=== PATIENT | male | born 1985 | race American Indian/Alaskan Native ===

== ENCOUNTER 2020-07-30 04:51 | Emergency (ER) | payer SELFPAY ==
[2020-07-30 05:08] VITALS: BP 145/89
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
== END 2020-07-30 05:34 | disposition home or self-care (01) ==
LOC: ED 04:51
DX: S16.1XXA Strain of muscle, fascia and tendon at neck level, initial encounter (principal); M62.838 Other muscle spasm; M54.2 Cervicalgia; Z79.899 Other long term (current) drug therapy; Y08.89XA Assault by other specified means, initial encounter; Y93.89 Activity, other specified; Y92.89 Other specified places as the place of occurrence of the external cause; Y99.8 Other external cause status
CPT/HCPCS: 99282

== ENCOUNTER 2020-11-20 18:58 | Emergency (ER) | payer OTHER ==
[2020-11-20 20:50] VITALS: BP 149/99
[2020-11-20] MEDS ORDERED: ONDANSETRON 4 MG ODT TAB PO ONE (22:24)
[2020-11-20] MEDS ORDERED: HYDROcodone/ACETAMINOPHEN 5-325 MG TAB PO ONE (22:24)
[2020-11-20] MEDS ORDERED: IBUPROFEN 600 MG TAB PO ONE (22:24)
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
== END 2020-11-20 23:35 | disposition home or self-care (01) ==
LOC: ED 18:58
DX: M62.830 Muscle spasm of back (principal); M54.5 Low back pain; G89.29 Other chronic pain; M54.2 Cervicalgia; F17.200 Nicotine dependence, unspecified, uncomplicated; Z79.899 Other long term (current) drug therapy
CPT/HCPCS: 99282; Q0162

== ENCOUNTER 2021-01-04 11:45 | Emergency (ER) | payer OTHER ==
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
[2021-01-04 14:48] LABS: Bilirubin,Urine NEG (Negative); Blood,Urine SM (Negative); Color,Urine Yellow (Yellow); Mucus,Urine FEW /HPF; Protein,Urine <15 mg/dL mg/dL (Negative)
[2021-01-04 15:01] LABS: Hematocrit 47.1 % (35.5-45.6); Mean Corpuscular HGB Conc 34 % (32-34); Mean Corpuscular Volume 91 fl (84-94); Platelet Count 295 K/mm3 (140-440); Red Blood Count 5.16 M/mm3 (3.65-5.03); Red Cell Distribution Width 13.6 % (13.2-15.2)
[2021-01-04 15:20] LABS: Alanine Aminotransferase 29 units/L (7-56); Albumin 4.3 g/dL (3.9-5); BUN/Creatinine Ratio 10; Blood Urea Nitrogen 13 mg/dL (9-20); Calcium 9.2 mg/dL (8.4-10.2); Hemolysis Index 30
--- NOTE | 2021-01-04 16:25 | Cat Scan Report ---
CT abdomen pelvis w con INDICATION / CLINICAL INFORMATION: RLQ and right lower back pain OMNI 300 100ML . TECHNIQUE: Axial CT images were obtained through the abdomen and pelvis after IV contrast. All CT sc ans at this location are performed using CT dose reduction for ALARA by means of automated exposure c ontrol. COMPARISON: None available. FINDINGS: LOWER CHEST: Sub-4 mm subpleural nodule in the left lower lobe is of doubtful clinical significance a nd no further follow-up is required. No acute airspace disease in the lung bases. LIVER: No significant abnormality GALLBLADDER/BILIARY TREE: No significant abnormality PANCREAS: No significant abnormality SPLEEN: No significant abnormality ADRENALS: No significant abnormality KIDNEYS / URETER: No significant abnormality. No urolithiasis or hydronephrosis. URINARY BLADDER: No significant abnormality REPRODUCTIVE ORGANS: No significant abnormality STOMACH / BOWEL: No significant abnormality. The appendix is normal in caliber. LYMPH NODES: No significant adenopathy. VASCULATURE: No significant abnormality. OTHER: No free air, free fluid, or focal fluid collection is identified. SKELETAL SYSTEM: No acute osseous findings. IMPRESSION: No acute abnormality of the abdomen or pelvis. Normal appendix. Signer Name: Russ Wright MD Signed: 01/04/2021 4:20 PM Workstation Name: [id number]
[2021-01-04 16:33] LABS: Total Cells Counted 100
[2021-01-04 16:40] LABS: RBC Morphology Normal
[2021-01-04 17:47] VITALS: BP 162/80
== END 2021-01-04 17:50 | disposition home or self-care (01) ==
LOC: ED 11:45
DX: M54.5 Low back pain (principal); R10.31 Right lower quadrant pain; F17.200 Nicotine dependence, unspecified, uncomplicated; Z79.899 Other long term (current) drug therapy
CPT/HCPCS: 36415; 74177; 80053; 81001; 83690; 85007; 85025; 99284; Q9967

== ENCOUNTER 2021-09-01 14:56 | Emergency (ER) | payer SELFPAY ==
--- NOTE | 2021-09-01 18:41 | Ultrasound Report ---
EXAMINATION: Testicular ultrasound, 09/01/2021 CLINICAL INFORMATION / INDICATION: Bilateral testicular pain and swelling. COMPARISON: None. FINDINGS: Both testicles appear normal in size and echogenicity. The right testicle measures 3.3 x 2.9 x 3.0 cm . The left testicle measures 3.8 x 2.0 x 2.9 cm. There is symmetric Doppler flow to both testicles. There is a small right hydrocele. IMPRESSION: 1. No sonographic evidence of acute testicular abnormality. 2. Small right hydrocele. Signer Name: Tanya Polanco MD Signed: 09/01/2021 6:36 PM Workstation Name: [id number]
[2021-09-01] MEDS ORDERED: MORPHINE 4 MG/1 ML INJ IV ONE (19:11)
[2021-09-01] MEDS ORDERED: ONDANSETRON 4 MG/2 ML INJ IV ONE (19:11)
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
[2021-09-01 19:55] LABS: Basophils # (Auto) 0.1 K/mm3 (0.0-0.1); Eosinophils % (Auto) 0.1 % (0.0-4.3); Hematocrit 45.4 % (35.5-45.6); Hemoglobin 15.4 gm/dl (11.8-15.2); Lymphocytes # (Auto) 1.9 K/mm3 (1.2-5.4); Lymphocytes % (Auto) 15.5 % (13.4-35.0); Mean Corpuscular HGB Conc 34 % (32-34); Mean Corpuscular Volume 91 fl (84-94); Monocytes # (Auto) 1.4 K/mm3 (0.0-0.8); Monocytes % (Auto) 11.6 % (0.0-7.3); Platelet Count 323 K/mm3 (140-440); Red Blood Count 5.01 M/mm3 (3.65-5.03); Red Cell Distribution Width 13.5 % (13.2-15.2)
[2021-09-01 19:57] LABS: Bilirubin,Urine NEG (Negative); Blood,Urine SM (Negative); Color,Urine Yellow (Yellow); Mucus,Urine 1+ /HPF
[2021-09-01 20:08] LABS: WBC,Urine < 1.0 /HPF (0.0-6.0)
[2021-09-01 20:18] LABS: Alanine Aminotransferase 67 units/L (7-56); Albumin 4.2 g/dL (3.9-5); BUN/Creatinine Ratio 9; Blood Urea Nitrogen 9 mg/dL (9-20); Calcium 9.8 mg/dL (8.4-10.2); Hemolysis Index 54
--- NOTE | 2021-09-01 21:16 | Cat Scan Report ---
CT ABDOMEN AND PELVIS WITH CONTRAST INDICATION: lower abdominal/suprapubic pain. TECHNIQUE: Axial CT images were obtained through the abdomen and pelvis after 100 cc Omni [address] scans at this location are performed using CT dose reduction for ALARA by means of automated expos ure control. COMPARISON: None available. FINDINGS: LOWER CHEST: No significant abnormality. LIVER: Moderate decreased attenuation characteristic for steatosis GALLBLADDER: No significant abnormality. BILE DUCTS: No significant abnormality. PANCREAS: No significant abnormality. SPLEEN: No significant abnormality. ADRENALS: No significant abnormality. RIGHT KIDNEY and URETER: No significant abnormality. LEFT KIDNEY and URETER: No significant abnormality. STOMACH and SMALL BOWEL: No significant abnormality. COLON: No significant abnormality. APPENDIX: No significant abnormality. PERITONEUM: No free fluid. No free air. No fluid collection. LYMPH NODES: No significant adenopathy. AORTA and ARTERIES: No significant abnormality. IVC and VEINS: No significant abnormality. URINARY BLADDER: Mild perivesicular stranding changes likely secondary to cystitis REPRODUCTIVE ORGANS: No significant abnormality. ADDITIONAL FINDINGS: None. SKELETAL SYSTEM: No significant abnormality. IMPRESSION: 1. Probable mild cystitis. Please confirm with urinalysis studies. No pyelonephritis. Signer Name: Óscar Martinez MD Signed: 09/01/2021 9:11 PM Workstation Name: [id number]
[2021-09-01] MEDS ORDERED: KETOROLAC 30 MG/1 ML INJ IV ONE (21:22)
[2021-09-01 21:57] VITALS: BP 152/98
== END 2021-09-01 21:58 | disposition home or self-care (01) ==
LOC: ED 14:56
DX: N30.90 Cystitis, unspecified without hematuria (principal); R03.0 Elevated blood-pressure reading, without diagnosis of hypertension; F17.200 Nicotine dependence, unspecified, uncomplicated; Z79.899 Other long term (current) drug therapy
CPT/HCPCS: 36415; 74177; 80053; 81001; 83690; 85025; 93975; 96374; 96375; 99284; J1885; J2270; J2405; Q9967